=== PATIENT | male | born 1970 | race Caucasian/White ===

== ENCOUNTER 2024-12-15 08:31 | Emergency (ER) | payer OTHER ==
[~2024-12-15] VITALS: Ht 175.2 cm; Wt 86.2 kg
[~2024-12-15 08:31] MED LIST: AUGMENTIN 875 M1 TAB PO; MEDROL DOSEPAK4 MG PO; PROVENTIL0.09 MG/AC IH
[2024-12-15] MEDS ORDERED: MELOXICAM15 MG PO (08:51)
== END 2024-12-15 09:18 | disposition home or self-care (01) ==
LOC: ED 08:31
DX: S63.501A Unspecified sprain of right wrist, initial encounter (principal); W22.8XXA Striking against or struck by other objects, initial encounter; Y93.89 Activity, other specified; Y92.69 Other specified industrial and construction area as the place of occurrence of the external cause; Y99.0 Civilian activity done for income or pay